=== PATIENT | female | born 1935 | race African-American/Black ===

== ENCOUNTER 2021-12-12 13:38 | Emergency (ER) | payer MEDICARE, OTHER ==
[~2021-12-12] VITALS: Ht 162.6 cm; Wt 74.0 kg
[2021-12-12 13:57] VITALS: BP 170/83
[2021-12-12] MEDS ORDERED: ASCO100T12 PO (14:04)
[2021-12-12] MEDS ORDERED: AMLO5TAB88 PO (14:04)
[2021-12-12] MEDS ORDERED: ZINC50TA69 PO (14:04)
[2021-12-12] MEDS ORDERED: LOSA100T32 PO (14:04)
[2021-12-12] MEDS ORDERED: vitamin d (14:04)
[2021-12-12] MEDS ORDERED: LIDOCAINE HCL/PF 1% 10 MG/ML 5ML VIAL INFIL ONE (15:30)
[2021-12-12] MEDS ORDERED: TETANUS, DIPHTHERIA, PERTUSSIS VAC/PF 0.5ML (>10YR OLD) IM ONE (15:30)
[2021-12-12] MEDS ORDERED: ACETAMINOPHEN 500MG TABLET PO ONE (15:30)
[2021-12-12] MEDS ORDERED: BACITRACIN ZINC OINT UDPKT TOP ONE (15:30)
[2021-12-12] MEDS ORDERED: BO1 TP (16:37)
[2021-12-12] MEDS ORDERED: ACET-2708 MT (16:37)
[2021-12-12] MEDS ORDERED: LIDOCAINE HCL 1% 10 MG/ML 10ML VIAL INJ NR (16:56)
== END 2021-12-12 17:15 | disposition home or self-care (01) ==
LOC: ER 13:38
DX: S01.81XA Laceration without foreign body of other part of head, initial encounter (principal); I10 Essential (primary) hypertension; Z88.0 Allergy status to penicillin; Z98.890 Other specified postprocedural states; W01.0XXA Fall on same level from slipping, tripping and stumbling without subsequent striking against object, initial encounter; Y93.89 Activity, other specified; Y92.89 Other specified places as the place of occurrence of the external cause; Y99.8 Other external cause status
CPT/HCPCS: 12013; 90471; 90715; 99284; J3490

== ENCOUNTER 2021-12-17 15:41 | Emergency (ER) | payer MEDICARE, OTHER ==
[~2021-12-17] VITALS: Ht 162.6 cm; Wt 73.0 kg
[~2021-12-17 15:41] MED LIST: ACET-2708 MT; AMLO5TAB88 PO; ASCO100T12 PO; BO1 TP; LOSA100T32 PO; ZINC50TA69 PO; vitamin d
[2021-12-17 15:55] VITALS: BP 157/78
== END 2021-12-17 16:28 | disposition home or self-care (01) ==
LOC: ER 15:41
DX: S01.81XD Laceration without foreign body of other part of head, subsequent encounter (principal); X58.XXXD Exposure to other specified factors, subsequent encounter; I10 Essential (primary) hypertension; Z90.710 Acquired absence of both cervix and uterus; Z79.899 Other long term (current) drug therapy; Z88.0 Allergy status to penicillin
CPT/HCPCS: 99281